=== PATIENT | female | born 1985 | race Caucasian/White ===

== ENCOUNTER 2017-02-20 10:54 | Emergency (ER) | payer OTHER ==
[~2017-02-20] VITALS: Ht 162.6 cm; Wt 74.4 kg
[2017-02-20 12:18] LABS: BILIRUBIN,URINE 1+ (NEGATIVE); CLARITY,URINE TURBID (CLEAR); COLOR,URINE RED (YELLOW); KETONES,URINE 1+ (NEGATIVE); LEUKOCYTE ESTERASE ,URINE 2+ (NEGATIVE); PREGNANCY TEST, URINE NEGATIVE (NEGATIVE); URINE UROBILINOGEN 1 mg/dL (0.2 - 1)
[2017-02-20 12:20] LABS: NITRITE,URINE POSITIVE (NEGATIVE); PROTEIN,URINE DIPSTICK 2+ (NEGATIVE)
[2017-02-20 12:24] LABS: BACTERIA,URINE FEW /HPF; EPITHELIAL CELLS,URINE FEW /LPF; RBC,URINE >50 /HPF (0-5); WBC,URINE (MAN) 21-50 /HPF (0-5)
[2017-02-20 12:25] LABS: MUCUS,URINE RARE (RARE); YEAST,URINE FEW
== END 2017-02-20 14:51 | disposition short-term general hospital (02) ==
LOC: ER 10:54
DX: R31.9 Hematuria, unspecified (principal)
CPT/HCPCS: 81001; 81025; 87086

== ENCOUNTER 2017-11-16 06:49 | Emergency (ER) | payer SELFPAY ==
[~2017-11-16] VITALS: Ht 162.6 cm; Wt 74.4 kg
== END 2017-11-16 08:32 | disposition short-term general hospital (02) ==
LOC: ER 06:49
DX: R10.31 Right lower quadrant pain (principal)